=== PATIENT | male | born 1935 | race Caucasian/White ===

== ENCOUNTER 2017-01-03 13:09 | Inpatient (IN) | payer MEDICARE, BC ==
--- NOTE | 2017-01-03 13:58 | ED ---
General Adult HPI - General Chief complaint: Shortness of Breath Stated complaint: Leg Pain Time Seen by Provider: 01/03/17 13:49 Source: patient Mode of arrival: wheelchair Limitations: no limitations - History of Present Illness Initial comments: 81-year-old male presents with shortness breath for 2 months lives with a relative however the son came into town they have noticed he has at times had some hallucinations. And he seemed to be not doing as well. Has not seen a doctor in 6 years she's had previous bilateral carotid surgery. His had his stents in his left leg. He has no chest pain dizziness nausea vomiting diarrhea. No focal numbness or weakness - Related Data Home Medications Medication Instructions Recorded Confirmed No Known Home Medications [No 01/03/17 01/03/17 Known Home Medications] Allergies Allergy/AdvReac Type Severity Reaction Status Date / Time No Known Allergies Allergy Verified 01/03/17 13:58 Review of Systems ROS Statement: Those systems with pertinent positive or pertinent negative responses have been documented in the HPI. ROS Other: All systems not noted in ROS Statement are negative. Constitutional: Denies: fever, chills ENT: Denies: ear pain, throat pain Respiratory: Reports: dyspnea. Denies: cough Cardiovascular: Denies: chest pain Endocrine: Reports: fatigue Gastrointestinal: Denies: abdominal pain, nausea, vomiting, diarrhea Genitourinary: Denies: urgency, frequency Skin: Denies: rash Neurological: Denies: headache Psychiatric: Denies: anxiety, depression Hematological/Lymphatic: Denies: easy bleeding, easy bruising Past Medical History Past Medical History: No Reported History History of Any Multi-Drug Resistant Organisms: None Reported Additional Past Surgical History / Comment(s): carotids r testicular surg Past Psychological History: No Psychological Hx Reported Smoking Status: Never smoker Past Alcohol Use History: None Reported Past Drug Use History: None Reported - Past Family History Father Family Medical History: CVA/TIA Brother(s) Family Medical History: Chest Pain / Angina Additional Family Medical History / Comment(s): brothers x2 General Exam Limitations: no limitations General appearance: alert Head exam: Present: atraumatic Eye exam: Present: PERRL, EOMI ENT exam: Present: normal exam, mucous membranes moist Neck exam: Present: normal inspection Respiratory exam: Present: normal lung sounds bilaterally Cardiovascular Exam: Present: regular rate, normal heart sounds GI/Abdominal exam: Present: soft, normal bowel sounds Extremities exam: Present: pedal edema (4+) Neurological exam: Present: alert, CN II-XII intact Skin exam: Present: warm, dry Course Vital Signs 01/03/17 01/03/17 01/03/17 13:34 14:28 15:30 Temperature 97.6 F Pulse Rate 98 82 90 Respiratory 18 18 24 Rate Blood Pressure 169/83 165/90 154/87 O2 Sat by Pulse 99 100 100 Oximetry 01/03/17 01/03/17 01/03/17 16:30 17:30 18:49 Temperature Pulse Rate 82 90 92 Respiratory 22 22 22 Rate Blood Pressure 161/93 160/84 162/87 O2 Sat by Pulse 100 100 100 Oximetry Medical Decision Making - Medical Decision Making Discussed with the on-call physician admission, has congestive heart failure chronic renal failure CT of the brain reveals just chronic changes with old stroke. - Lab Data Result diagrams: 01/04/17 11:37 01/04/17 06:20 Lab Results 01/03/17 01/03/17 01/03/17 Range/Units 14:15 14:15 14:15 WBC 12.6 H (3.8-10.6) k/uL RBC 4.50 (4.30-5.90) m/uL Hgb 13.3 (13.0-17.5) gm/dL Hct 43.1 (39.0-53.0) % MCV 95.7 (80.0-100.0) fL MCH 29.5 (25.0-35.0) pg MCHC 30.8 L (31.0-37.0) g/dL RDW 14.6 (11.5-15.5) % Plt Count 235 (150-450) k/uL Neutrophils % 89 % Lymphocytes % 3 % Monocytes % 7 % Eosinophils % 0 % Basophils % 0 % Neutrophils # 11.2 H (1.3-7.7) k/uL Lymphocytes # 0.3 L (1.0-4.8) k/uL Monocytes # 0.8 (0-1.0) k/uL Eosinophils # 0.0 (0-0.7) k/uL Basophils # 0.0 (0-0.2) k/uL Hypochromasia Slight PT (9.0-12.0) sec INR (<1.1) APTT (22.0-30.0) sec D-Dimer (<0.60) mg/L FEU Sodium 136 L (137-145) mmol/L Potassium 4.8 (3.5-5.1) mmol/L Chloride 105 (98-107) mmol/L Carbon Dioxide 17 L (22-30) mmol/L Anion Gap 14 mmol/L BUN 84 H* (9-20) mg/dL Creatinine 2.82 H (0.66-1.25) mg/dL Est GFR (MDRD) Af Amer 26 (>60 ml/min/1.73 sqM) Est GFR (MDRD) Non-Af 22 (>60 ml/min/1.73 sqM) Glucose 100 H (74-99) mg/dL Calcium 8.9 (8.4-10.2) mg/dL Magnesium (1.6-2.3) mg/dL Total Bilirubin 1.5 H (0.2-1.3) mg/dL AST 22 (17-59) U/L ALT 35 (21-72) U/L Alkaline Phosphatase 169 H (38-126) U/L Total Creatine Kinase 38 L (55-170) U/L CK-MB (CK-2) 1.8 (0.0-2.4) ng/mL CK-MB (CK-2) Rel Index 4.7 Troponin I 0.054 H* (0.000-0.034) ng/mL NT-Pro-B Natriuret Pep pg/mL Total Protein 6.8 (6.3-8.2) g/dL Albumin 3.0 L (3.5-5.0) g/dL TSH (0.465-4.680) mIU/L Free T4 (0.78-2.19) ng/dL Free T3 pg/mL (2.8-5.3) pg/ml Urine Color Urine Appearance (Clear) Urine pH (5.0-8.0) Ur Specific [place] (1.001-1.035) Urine Protein (Negative) Urine Glucose (UA) (Negative) Urine Ketones (Negative) Urine Blood (Negative) Urine Nitrite (Negative) Urine Bilirubin (Negative) Urine Urobilinogen (<2.0) mg/dL Ur Leukocyte Esterase (Negative) Urine WBC (0-5) /hpf Urine Bacteria (None) /hpf Hyaline Casts (0-2) /lpf Urine Mucus (None) /hpf 01/03/17 01/03/17 01/03/17 Range/Units 14:15 14:15 14:20 WBC (3.8-10.6) k/uL RBC (4.30-5.90) m/uL Hgb (13.0-17.5) gm/dL Hct (39.0-53.0) % MCV (80.0-100.0) fL MCH (25.0-35.0) pg MCHC (31.0-37.0) g/dL RDW (11.5-15.5) % Plt Count (150-450) k/uL Neutrophils % % Lymphocytes % % Monocytes % % Eosinophils % % Basophils % % Neutrophils # (1.3-7.7) k/uL Lymphocytes # (1.0-4.8) k/uL Monocytes # (0-1.0) k/uL Eosinophils # (0-0.7) k/uL Basophils # (0-0.2) k/uL Hypochromasia PT 13.2 H (9.0-12.0) sec INR 1.3 (<1.1) APTT 29.9 (22.0-30.0) sec D-Dimer 3.78 H (<0.60) mg/L FEU Sodium (137-145) mmol/L Potassium (3.5-5.1) mmol/L Chloride (98-107) mmol/L Carbon Dioxide (22-30) mmol/L Anion Gap mmol/L BUN (9-20) mg/dL Creatinine (0.66-1.25) mg/dL Est GFR (MDRD) Af Amer (>60 ml/min/1.73 sqM) Est GFR (MDRD) Non-Af (>60 ml/min/1.73 sqM) Glucose (74-99) mg/dL Calcium (8.4-10.2) mg/dL Magnesium (1.6-2.3) mg/dL Total Bilirubin (0.2-1.3) mg/dL AST (17-59) U/L ALT (21-72) U/L Alkaline Phosphatase (38-126) U/L Total Creatine Kinase (55-170) U/L CK-MB (CK-2) (0.0-2.4) ng/mL CK-MB (CK-2) Rel Index Troponin I (0.000-0.034) ng/mL NT-Pro-B Natriuret Pep 87786 pg/mL Total Protein (6.3-8.2) g/dL Albumin (3.5-5.0) g/dL TSH (0.465-4.680) mIU/L Free T4 (0.78-2.19) ng/dL Free T3 pg/mL (2.8-5.3) pg/ml Urine Color Yellow Urine Appearance Clear (Clear) Urine pH 5.0 (5.0-8.0) Ur Specific [place] 1.012 (1.001-1.035) Urine Protein 1+ H (Negative) Urine Glucose (UA) Negative (Negative) Urine Ketones Negative (Negative) Urine Blood Negative (Negative) Urine Nitrite Negative (Negative) Urine Bilirubin Negative (Negative) Urine Urobilinogen <2.0 (<2.0) mg/dL Ur Leukocyte Esterase Negative (Negative) Urine WBC 1 (0-5) /hpf Urine Bacteria Rare H (None) /hpf Hyaline Casts 4 H (0-2) /lpf Urine Mucus Rare H (None) /hpf 01/03/17 Range/Units 14:27 WBC (3.8-10.6) k/uL RBC (4.30-5.90) m/uL Hgb (13.0-17.5) gm/dL Hct (39.0-53.0) % MCV (80.0-100.0) fL MCH (25.0-35.0) pg MCHC (31.0-37.0) g/dL RDW (11.5-15.5) % Plt Count (150-450) k/uL Neutrophils % % Lymphocytes % % Monocytes % % Eosinophils % % Basophils % % Neutrophils # (1.3-7.7) k/uL Lymphocytes # (1.0-4.8) k/uL Monocytes # (0-1.0) k/uL Eosinophils # (0-0.7) k/uL Basophils # (0-0.2) k/uL Hypochromasia PT (9.0-12.0) sec INR (<1.1) APTT (22.0-30.0) sec D-Dimer (<0.60) mg/L FEU Sodium (137-145) mmol/L Potassium (3.5-5.1) mmol/L Chloride (98-107) mmol/L Carbon Dioxide (22-30) mmol/L Anion Gap mmol/L BUN (9-20) mg/dL Creatinine (0.66-1.25) mg/dL Est GFR (MDRD) Af Amer (>60 ml/min/1.73 sqM) Est GFR (MDRD) Non-Af (>60 ml/min/1.73 sqM) Glucose (74-99) mg/dL Calcium (8.4-10.2) mg/dL Magnesium 2.3 (1.6-2.3) mg/dL Total Bilirubin (0.2-1.3) mg/dL AST (17-59) U/L ALT (21-72) U/L Alkaline Phosphatase (38-126) U/L Total Creatine Kinase (55-170) U/L CK-MB (CK-2) (0.0-2.4) ng/mL CK-MB (CK-2) Rel Index Troponin I (0.000-0.034) ng/mL NT-Pro-B Natriuret Pep pg/mL Total Protein (6.3-8.2) g/dL Albumin (3.5-5.0) g/dL TSH 2.370 (0.465-4.680) mIU/L Free T4 1.54 (0.78-2.19) ng/dL Free T3 pg/mL 2.0 L (2.8-5.3) pg/ml Urine Color Urine Appearance (Clear) Urine pH (5.0-8.0) Ur Specific [place] (1.001-1.035) Urine Protein (Negative) Urine Glucose (UA) (Negative) Urine Ketones (Negative) Urine Blood (Negative) Urine Nitrite (Negative) Urine Bilirubin (Negative) Urine Urobilinogen (<2.0) mg/dL Ur Leukocyte Esterase (Negative) Urine WBC (0-5) /hpf Urine Bacteria (None) /hpf Hyaline Casts (0-2) /lpf Urine Mucus (None) /hpf 01/03/17 14:11 EKG 01/03/2017 1406 ventricular rate 94 bpm, TN interval 214 ms, QRS duration are 14 ms, QT interval 382 ms sinus rhythm with first-degree AV block possible left atrial enlargement left anterior fascicular block and LVH with repolarization abnormality possible old lateral infarct incomplete right bundle branch block 01/03/17 14:12 - Radiology Data Radiology results: report reviewed Chest x-ray report no infiltrate of possible mild failure Disposition Clinical Impression: Congestive heart failure (CHF), Chronic renal failure syndrome Disposition: ADMITTED IP TO THIS HOSP Decision Date: 01/03/17
[2017-01-03 14:31] LABS: Basophils % (A) 0 %; CH 29.5; Eosinophils % (A) 0 %; HCT 43.1 % (39.0-53.0); HDW 2.49; HGB 13.3 gm/dL (13.0-17.5); Hypochromasia Slight; Luc # (Auto) 0.15; Luc % (Auto) 1; Lymphocytes # (A) 0.3 k/uL (1.0-4.8); Lymphocytes % (A) 3 %; MCH 29.5 pg (25.0-35.0); MCHC 30.8 g/dL (31.0-37.0); MCV 95.7 fL (80.0-100.0); Mean Platelet Volume 7.6; Monocytes # (A) 0.8 k/uL (0-1.0); Monocytes % (A) 7 %; Neutrophils # (A) 11.2 k/uL (1.3-7.7); Neutrophils % (A) 89 %; RDW 14.6 % (11.5-15.5); WBC 12.6 k/uL (3.8-10.6); WBC (Perox) 12.18
[2017-01-03 14:44] LABS: Calcium 8.9 mg/dL (8.4-10.2); Potassium 4.8 mmol/L (3.5-5.1); Total Bilirubin 1.5 mg/dL (0.2-1.3); Total Protein 6.8 g/dL (6.3-8.2)
[2017-01-03 14:44] LABS: Appearance,Urine Clear (Clear); Bacteria,Urine Rare /hpf; Bilirubin,Urine Negative (Negative); Glucose,Urine (UA) Negative (Negative); Ketones,Urine Negative (Negative); Leukocyte Esterase,Urine Negative (Negative); Mucus,Urine Rare /hpf; Nitrite,Urine Negative (Negative); Particle Count 6265; Protein,Urine 1+ (Negative); Specific Gravity,Urine 1.012 (1.001-1.035); UA Billing (MACRO vs. MICRO) MICRO; Urobilinogen,Urine <2.0 mg/dL (<2.0); WBC,Urine 1 /hpf (0-5)
[2017-01-03 14:48] LABS: INR 1.3 (<1.1); Partial Thromboplastin Time 29.9 sec (22.0-30.0); Prothrombin Time 13.2 sec (9.0-12.0)
[2017-01-03 15:20] LABS: Creatine Kinase MB 1.8 ng/mL (0.0-2.4)
--- NOTE | 2017-01-03 15:24 | XR ---
EXAMINATION TYPE: XR chest 2V DATE OF EXAM: 01/03/2017 3:10 PM COMPARISON: None HISTORY: 81-year-old male difficulty breathing TECHNIQUE: AP and lateral views FINDINGS: Heart appears mildly enlarged. Diffuse interstitial and vascular prominence with small right and trac e left pleural effusions with adjacent opacity. IMPRESSION: 1. Correlate for CHF with pulmonary vascular congestion. 2. Small right and trace left pleural effusions with adjacent atelectasis and/or consolidation partic ularly at the right base.
[2017-01-03 15:34] LABS: Troponin I 0.054 ng/mL (0.000-0.034)
[2017-01-03] MEDS ORDERED: FUROSEMIDE 10 MG/ML 10 ML VIAL IV STA (15:42)
--- NOTE | 2017-01-03 17:05 | US ---
EXAMINATION TYPE: US venous doppler duplex LE BI DATE OF EXAM: 01/03/2017 3:58 PM COMPARISON: NONE CLINICAL HISTORY: 81-year-old male Pain. Bilateral leg swelling SIDE PERFORMED: Bilateral TECHNIQUE: The lower extremity deep venous system is examined utilizing real time linear array sonog jorge with graded compression, doppler sonography and color-flow sonography. FINDINGS: VESSELS IMAGED: External Iliac Vein (EIV) Common Femoral Vein Deep Femoral Vein Greater Saphenous Vein * Femoral Vein Popliteal Vein Proximal Calf Veins (* superficial vessels) Right Leg: Negative for DVT Left Leg: Negative for DVT IMPRESSION: No evidence for DVT within the bilateral lower extremities imaged from the groin to the upper calves.
--- NOTE | 2017-01-03 18:09 | CT ---
EXAMINATION TYPE: CT brain wo con DATE OF EXAM: 01/03/2017 5:46 PM COMPARISON: NONE HISTORY: 81-year-old male with confusion and weakness TECHNIQUE: Examination was done in axial plane without intravenous contrast. Coronal and sagittal r econstructions performed. CT DLP: 1084.3 mGycm Automated exposure control for dose reduction was used. FINDINGS: There is no evidence of acute intracranial hemorrhage, acute ischemic changes, mass, mass-effect, or extra-axial fluid collection. There is no effacement of cerebral sulci or basal subarachnoid cister ns. There is no hydrocephalus. There is no midline shift. Waddell-white matter distinction is preserv ed. There is moderate to severe confluent white matter hypodensity. Mild central cerebral volume loss. Sm all old infarct within the left cerebellar hemisphere posteriorly and inferiorly. Paranasal sinuses and mastoid air cells are well pneumatized. Orbits and globes are intact. IMPRESSION: 1. No acute intracranial abnormality seen. 2. Mild central atrophy and moderate to severe confluent burden of chronic small vessel ischemic dise ase. Suspect small old left cerebellar hemisphere infarct.
[2017-01-03] MEDS ORDERED: NALOXONE 0.4 MG/ML 1 ML VIAL IV PRN (18:20)
--- NOTE | 2017-01-03 19:56 | US ---
EXAMINATION TYPE: US kidneys/renal and bladder DATE OF EXAM: 01/03/2017 7:36 PM COMPARISON: NONE CLINICAL HISTORY: 81-year-old male with pain. TECHNIQUE: Multiple sonographic images of the kidneys and bladder were obtained. FINDINGS: Right Kidney: 9.7 x 3.5 x 4.1 cm without hydronephrosis. Left Kidney: 9.1 x 4.4 x 4.7 cm without hydronephrosis. Bladder: There is a rounded area along the anterior bladder wall measuring 1.6 x 2.1 x 1.2 cm. Uncert ain if this represents bladder wall redundancy or urothelial lesion. There is prostatomegaly with heterogeneous appearance to the prostate gland measuring 5.5 cm wide and at least 6.4 cm craniocaudal with posterior impression on to the bladder base Right pleural effusion incidentally noted. IMPRESSION: 1. No hydronephrosis. 2. Prostatomegaly measuring at least 6.4 cm with posterior impression on the bladder base. Correlate with PSA values, patient's symptoms, and physical exam findings. BPH is suggested. 3. Either anterior bladder wall redundancy or a 2.1 cm urothelial lesion. Correlate with urinalysis a nd urine cytology. Short interval follow-up versus direct visualization as indicated. 4. Incidental right pleural effusion.
[2017-01-03] MEDS ORDERED: ENOXAPARIN 60 MG/0.6 ML SYRINGE SQ SCH (20:00)
[2017-01-03 22:02] LABS: Magnesium 2.3 mg/dL (1.6-2.3)
[2017-01-04 06:58] LABS: Calcium 8.5 mg/dL (8.4-10.2); Potassium 4.4 mmol/L (3.5-5.1)
[2017-01-04 07:03] LABS: Basophils % (A) 0 %; CH 29.1; CHCM 30.6; Eosinophils % (A) 0 %; HCT 38.3 % (39.0-53.0); HDW 2.54; HGB 11.7 gm/dL (13.0-17.5); Hypochromasia Moderate; Luc # (Auto) 0.18; Luc % (Auto) 2; Lymphocytes # (A) 0.3 k/uL (1.0-4.8); Lymphocytes % (A) 3 %; MCH 29.3 pg (25.0-35.0); MCHC 30.7 g/dL (31.0-37.0); MCV 95.4 fL (80.0-100.0); Mean Platelet Volume 7.8; Monocytes # (A) 0.7 k/uL (0-1.0); Monocytes % (A) 7 %; Neutrophils # (A) 8.2 k/uL (1.3-7.7); Neutrophils % (A) 88 %; RBC 4.01 m/uL (4.30-5.90); RDW 14.3 % (11.5-15.5); WBC 9.4 k/uL (3.8-10.6); WBC (Perox) 9.51
[2017-01-04] MEDS: FUROSEMIDE 10 MG/ML 10 ML VIAL IV SCH ×3 (07:49→21:04)
[2017-01-04] MEDS ORDERED: FAMOTIDINE 20 MG TAB PO SCH (09:00)
[2017-01-04] MEDS ORDERED: HEPARIN SODIUM,PORCINE 10,000 UNIT/ML 1 ML VIAL IV ONE (11:01)
[2017-01-04 11:04] LABS: Magnesium 2.1 mg/dL (1.6-2.3); Phosphorous 4.8 mg/dL (2.5-4.5)
--- NOTE | 2017-01-04 11:40 | P.NPCON ---
History of Present Illness - Reason for Consult Consult date: 01/04/17 acute renal failure - Chief Complaint Acute kidney injury. - History of Present Illness This is a 81-year-old male seen in consultation because of an elevated creatinine. Creatinine is 2.8. He came in because of 4-5 months feeling unwell with history of loss of taste, some difficulty swallowing with dry mouth. Also has been having nocturia for about 5 years as well as slow stream over the last few months. No hematuria kidney stones. No incontinence. He is also has had periods of hallucinations. No nausea vomiting he does have loose stools for the last 2 weeks about 3-4 small amounts per day. No abdominal pain no blood in the stools. No melena hemoptysis hematemesis. No abdominal pain and epigastric pain. No history of duodenal ulcer. No history of taking any nonsteroidals. He has not seen any doctors for several years. In the past she's had hypertension at age [age] years ago but was not controlled and had stopped taking all medications supposedly. He has had her for vascular disease and had a stent in his left leg by Dr. Churchill at [facility] few years ago. Also had bilateral endarterectomies No history of heart attack or strokes. Patient is walking with S cane and has poor ambulation. No history of falls's seizures syncope headache or double vision. Past Medical History Past Medical History: No Reported History, Heart Failure, Hypertension, Renal Disease Additional Past Medical History / Comment(s): pt admit with New onset CHF and New onset Renal failure 01/03 History of Any Multi-Drug Resistant Organisms: None Reported Additional Past Surgical History / Comment(s): Bilat carotids, r testicular surg , Sent to the [facility]-pt unsure which leg Past Anesthesia/Blood Transfusion Reactions: No Reported Reaction Past Psychological History: Anxiety, Depression Smoking Status: Former smoker Past Alcohol Use History: None Reported Additional Past Alcohol Use History / Comment(s): has a few drinks a day Past Drug Use History: None Reported - Past Family History Father Family Medical History: CVA/TIA Brother(s) Family Medical History: Chest Pain / Angina Additional Family Medical History / Comment(s): brothers x2 Medications and Allergies Home Medications Medication Instructions Recorded Confirmed Type No Known Home Medications [No 01/03/17 01/03/17 History Known Home Medications] Allergies Allergy/AdvReac Type Severity Reaction Status Date / Time No Known Allergies Allergy Verified 01/03/17 13:58 Physical Exam Vitals: Vital Signs Temp Pulse Pulse Resp BP BP Pulse Ox 01/04/17 08:00 90 18 152/82 93 L 01/04/17 04:00 86 19 147/82 92 L 01/04/17 00:00 55 L 18 143/76 96 01/03/17 20:57 97.0 F L 82 18 169/93 01/03/17 18:49 92 22 162/87 100 Intake and Output 01/03/17 01/04/17 01/04/17 22:59 06:59 14:59 Intake Total 0 120 Output Total 250 Balance 0 -130 Intake: IV 0 NS 0 Oral 120 Output: Urine 250 Other: Weight 68.2 kg On examination is awake alert oriented. HEENT exam no JVP lymphadenopathy thyromegaly no card bruit bilaterally carotid artery endarterectomy starts. Neck is supple no facial asymmetry Lungs are clear to auscultation percussion with an occasional fine crackle at both bases more on the right than on the left. No dullness to percussion Heart sounds are unremarkable for any murmur rub gallop. Abdomen soft nontender no organomegaly status masses. Extremity exam was mild edema Assessment is not felt but feet are warm. Neurologically awake alert oriented no asterixis. No focal motor deficit but profoundly weak. Results - Lab Results Most recent lab results Calcium 8.5 mg/dL (8.4-10.2) 01/04/17 06:20 Phosphorus 4.8 mg/dL (2.5-4.5) H 01/04/17 06:20 Magnesium 2.1 mg/dL (1.6-2.3) 01/04/17 06:20 01/04/17 06:20 01/04/17 06:20 Assessment and Plan Plan: Impression. 1. 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 Creatinine is 2.8, and went up to 2.9 as of this morning. No previous creatinines available in this hospital will try to obtain from the other hospital results of his previous surgery and labs. Urinalysis shows 1+ protein otherwise benign, ultrasound shows 9.7 cm 9.1 cm kidney 2. Possible acute kidney injury from prostatism and congestive heart failure. 3. Congestive heart failure. Possibly he has had coronary artery disease given the above generalized atherosclerosis. He is likely to have chronic hypertensive changes from long-standing uncontrolled hypertension of 20 years as he had stopped his medication. 4. Non-gap acidosis from kidney disease and chronic kidney disease and acute kidney injury 5. Prostatomegaly on ultrasound. 6. History of loose stools for 2 weeks rule out C. diff possible ischemic bowel but no abdominal pain. 7. History of hypertension uncontrolled for 21 years not on medication but currently blood pressure is in the 140s to 150s suggestive of hypertensive cardiovascular disease and possibly cardiomyopathy. Recommendation. Check bladder scan. Continue Lasix, current 60 mg every 12 IV dose is adequate. Watch I's and O's closely. Check orthostatic changes. Suggest neurological assessment of his prostate. Thank you for this consultation
[2017-01-04] MEDS: HEPARIN SODIUM,PORCINE/D5W PMX 25,000 UNIT in DEXTROSE/WATER 1 500ML.BAG IV SCH (11:43)
[2017-01-04] MEDS: METOPROLOL TARTRATE 12.5 MG TAB PO SCH (11:49)
[2017-01-04 11:58] LABS: Basophils % (A) 0 %; CH 29.3; Eosinophils % (A) 0 %; HCT 39.6 % (39.0-53.0); HDW 2.59; HGB 12.5 gm/dL (13.0-17.5); Hypochromasia Slight; Luc # (Auto) 0.18; Luc % (Auto) 2; Lymphocytes # (A) 0.4 k/uL (1.0-4.8); Lymphocytes % (A) 4 %; MCHC 31.5 g/dL (31.0-37.0); MCV 95.1 fL (80.0-100.0); Mean Platelet Volume 8.1; Monocytes # (A) 0.7 k/uL (0-1.0); Monocytes % (A) 6 %; Neutrophils # (A) 9.4 k/uL (1.3-7.7); Neutrophils % (A) 88 %; RBC 4.17 m/uL (4.30-5.90); RDW 14.6 % (11.5-15.5); WBC 10.7 k/uL (3.8-10.6); WBC (Perox) 10.14
[2017-01-04 12:07] LABS: INR 1.4 (<1.1); Partial Thromboplastin Time 33.1 sec (22.0-30.0); Prothrombin Time 13.7 sec (9.0-12.0)
--- NOTE | 2017-01-04 15:11 | US ---
EXAMINATION TYPE: US carotid duplex BILAT DATE OF EXAM: 01/04/2017 2:56 PM COMPARISON: NONE CLINICAL HISTORY: Past Carotid . Dizziness, pt states h/o bilat endart 15-20 yrs ago EXAM MEASUREMENTS: RIGHT: Peak Systolic Velocity (PSV) cm/sec ----- Right CCA: 63.3 ----- Right ICA: 222.7 ----- Right ECA: 229.2 ICA/CCA ratio: 3.5 RIGHT: End Diastole cm/sec ----- Right CCA: 20.6 ----- Right ICA: 64.3 ----- Right ECA: 15.8 LEFT: Peak Systolic Velocity (PSV) cm/sec ----- Left CCA: 71.3 ----- Left ICA: 98.2 ----- Left ECA: 200.4 ICA/CCA ratio: 1.4 LEFT: End Diastole cm/sec ----- Left CCA: 18.6 ----- Left ICA: 32.2 ----- Left ECA: 0.0 VERTEBRALS (direction of flow): Right Vertebral: Unable to visualize Left Vertebral: Antegrade Difficult exam, pt heavy breathing* Heterogeneous and soft plaque bilaterally with elevated velocities, more on Right IMPRESSION: 1. 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 Correlate with the patient's clinical symptoms. Criteria for Assigning % of Stenosis / Diameter reduction (Estimation based on the indirect measurements of the internal carotid artery velocities (ICA PSV). 1. Normal (no stenosis)=ICA PSV < 125 cm/s: ratio < 2.0: ICA EDV<40 cm/s. 2. Less than 50% stenosis=ICA PSV < 125 cm/s: ratio < 2.0: ICA EDV<40 cm/s. 3. 50 to 69% stenosis=ICA PSV of 125 to 230 cm/s: ration 2.0 ? 4.0: ICA EDV 40-100 cm/s. 4. Greater than 70% stenosis to near occlusion= ICA PSV > 230 cm/s: ratio > 4.0: ICA EDV > 100 cm/s. 5. Near occlusion= ICA PSV velocities may be low or undetectable: variable ratio and ICA EDV. 6. Total occlusion=unable to detect flow.
--- NOTE | 2017-01-04 16:08 | NM ---
EXAMINATION TYPE: NM pul vent and perfuse DATE OF EXAM: 01/04/2017 3:49 PM COMPARISON: Chest x-ray 01/03/2017 HISTORY: Elevated d-dimer TECHNIQUE: Utilizing inhalation of 71.5 mCi Tc 99m DTPA aerosol and intravenous injection of 5.5 mCi of Tc 99m MAA, ventilation and perfusion images are acquired post injection in multiple projections. FINDINGS: There is some mild defect at the posterior right lung base. This could correlate with the right pleur al effusion. This places the risk for pulmonary embolism at the lower end of intermediate. Moderate t o large mismatched defects are not evident. IMPRESSION: Low end of intermediate probability for pulmonary embolism.
[2017-01-04] MEDS: IOHEXOL 350 MG/ML 25 ML BOTTLE (ORAL USE) PO PRN ×2 (16:15→17:16)
--- NOTE | 2017-01-04 16:55 | CONS ---
DATE OF CONSULTATION: This is an 81-year-old elderly gentleman who has not seen a physician for the past 6 years. Apparently he has a history of peripheral and carotid vascular disease and has seen in Dr. Churchill in the past who performed carotid endarterectomy bilaterally and also has a left superficial femoral stent. Details of this is not available. He presented to the emergency room, brought in by family. Mainly because of shortness of breath, weakness, lack of energy, hallucinations. He did not have any chest pain. He was weak and had some shortness of breath, but no palpitations or syncope. After arrival, he was found to have significant renal failure. He has been hydrated. Nephrology input was sought. Initial troponin was abnormal and I was asked to see him with regards to coronary artery disease and elevated troponin. The patient is not a good historian. There is a lot of family available and apparently has not been taking care of himself. He lives with some relatives. They noted that he was hallucinating. Generalized weakness, lack of energy. At the time of my evaluation, he seems to be resting comfortably. PAST MEDICAL HISTORY: 1. History of bilateral carotid endarterectomy left superficial femoral stenting. 2. Hypertension. 3. Hyperlipidemia. 4. No documented evidence of myocardial infarction or CVA. SOCIAL HISTORY: The patient quit smoking several years ago, drinks alcohol 1 or 2 beers daily. MEDICATIONS AT HOME: None. ALLERGIES: None. REVIEW OF SYSTEMS: Remarkable for generalized weakness, lack of energy, no hematemesis or melena, no genitourinary symptoms. He does have some memory issues. Has some lack of appetite as well. He has lost some weight lately unable to quantify. On examination, blood pressure is 140/80, pulse rate is 80 per minute, regular. HEENT: Unremarkable. Fundus was not examined by me. Neck is supple. There is no JVD. I do hear bilateral carotid bruit. Heart exam reveals S1, S2 with a short systolic murmur at the base. Lungs reveal diminished air entry in bilateral lung peck. ABDOMEN: Soft. Lower extremities reveal diminished pulses left lower extremity. Palpable pulses right lower extremity. Central nervous system grossly normal, but no focal deficits or generalized weakness. EKG revealed sinus mechanism, left fascicular block, nonspecific ST-T changes, LVH by voltage criteria. Laboratory data reveals a creatinine of 2.9 and a BUN of 83. His troponin level initially was 0.05. BNP is elevated at 65,000. TSH is normal. D-dimer was elevated at 3.78. He has been placed on Lovenox. IMPRESSION: 1. Shortness of breath, cannot rule out pulmonary embolism. 2. Acute on chronic renal failure with volume overload picture elevated BNP. 3. Probable coronary artery disease. 4. Bilateral carotid disease, status post surgery. 5. Superficial peripheral arterial disease with left superficial femoral artery stenting. RECOMMENDATIONS: I am recommending that we discontinue Lovenox, since with renal failure it is not very effective. Switch him to IV heparin. I will recommend a VQ scan to rule out pulmonary embolism. Start him on a small dose of beta melinda, obtain an echocardiogram and a carotid Doppler. We will seek input from nephrology and based on this, I will make further recommendations. Prognosis is guarded for this patient. We will check an additional troponin, but I believe the elevated troponin may reflect a renal dysfunction values, but no clear-cut myocardial injury but will check an additional troponin as well. I discussed my thoughts in detail with the patient and family. Prognosis remains poor given his multiple comorbid conditions and lack of care on his part.
--- NOTE | 2017-01-04 17:23 | HP ---
DATE OF ADMISSION: 01/03/2017 CHIEF COMPLAINT: Shortness of breath, back pain and multiple other medical issues. HISTORY OF PRESENT ILLNESS: This 81-year-old gentleman with a past medical history of multiple medical problems including hypertension, history of congestive heart failure, history of renal disease, history of bilateral carotid artery surgery, history of peripheral vascular disease , anxiety, depression, was not seeing any physician for the last almost 6 years. The patient became progressively weak and wasted and the patient also had shortness of breath and cough and back pain. The family insisted the patient come to [facility]. The patient noted to have CHF exacerbation, admitted to the hospital for further evaluation and treatment. There is no history of fever, rigors or chills. No history of headache, loss of consciousness or seizures. PAST MEDICAL HISTORY: History of CHF, hypertension, history of noncompliance, renal failure, anxiety, and depression. MEDICATIONS: None. ALLERGIES: None. FAMILY HISTORY: History of cerebrovascular accident/ transient ischemic attack in the family. SOCIAL HISTORY: Occasional alcohol intake. Previous history of smoking. REVIEW OF SYSTEMS: ENT: Diminishing hearing, diminished vision. CARDIOVASCULAR: As mentioned earlier. RESPIRATORY: As mentioned earlier. GI: No nausea. : No dysuria. Nervous system: No numbness or weakness. Allergy/immunology: No asthma or hayfever. MUSCULOSKELETAL: As mentioned earlier. HEMATOLOGY/ONCOLOGY: No history of anemia. ENDOCRINE: As mentioned earlier. CONSTITUTIONAL: As mentioned earlier. DERMATOLOGY: Negative. RHEUMATOLOGY: negative. PSYCHIATRY: As mentioned earlier. PHYSICAL EXAMINATION: Alert and oriented times three. Pulse is 86, blood pressure 165/89, respirations 18, temperature 96.3, pulse ox 97% on room air. HEENT: Conjunctivae normal. NECK: No jugular venous distention. CARDIOVASCULAR: S1, S2 muffled. Ejection systolic murmur. RESPIRATORY: Breath sounds diminished at the bases. A few scattered rhonchi and crackles. Some tenderness in the upper thoracic vertebrae present. ABDOMEN: Soft, nontender. No mass palpable. Legs: Minimal edema. Bilateral pulses, diminished and some erythema also present. Nervous system: Higher function as mentioned. Moves all 4 limbs. Mild diffuse weakness. Wasting also present. LYMPHATICS: No lymph nodes palpable in the neck, axillae or groin. SKIN: No ulcer, rash or bleeding. LABS: WBC 10.7, hemoglobin 12.5, sodium 130, potassium 4.4. Creatinine is 2.90. Troponin 0.064. The chest x-rays are reviewed and shows left anterior hemiblock and nonprogression R wave and ST-T changes. ASSESSMENT: 1. Congestive heart failure exacerbation ejection fraction unknown. 2. Possibly chronic renal failure, stage III. 3. Rule out acute renal failure. 4. History of hypertension. 5. History of congestive heart failure. 6. History of bilateral ( ) surgery. 7. History of peripheral vascular disease and stent. 8. Anxiety/depression not otherwise specified. 9. History of nicotine dependence. 10. History of recent weight loss. 11. Hyponatremia. 12. Increased bilirubin. 13. Increased creatinine kinase. 14. Troponin 0.06, indeterminate. 15. Mild hypoalbuminemia with mild to moderate protein calorie malnutrition. 16. Increased WBC. 17. Anemia, normocytic. 18. Mild coagulopathy. 19. Increased d-dimer. 20. Prostatomegaly. RECOMMENDATIONS AND DISCUSSION: In this 81 -year-old gentleman who presented with multiple complex medical issues, we will monitor the patient closely. Continue the current medications. Continue symptomatic treatment. Otherwise, continue with cardiology, diuresis, nephrology will also be consulted. Chest x-ray has been reviewed. Venous Doppler no evidence of deep venous thrombosis. CAT scan of the brain showed no acute abnormality. Mild central atrophy. Otherwise, I would also recommend a CT scan of the chest and abdomen and pelvis also because the patient's noncompliance with any medical treatment for the last several years and the patient has multiple complex medical issues including recent weight loss. Again discussed with the family at length. I would also obtain hepatitis panel also, possibly of chronic liver disease a consideration as well. Further recommendations to follow. MTDD
--- NOTE | 2017-01-04 17:34 | P.CON ---
Consult Note - . Consult date: 01/04/17 Assessment/Plan:: impression; 1. infrainguinal arterial occlusive disease (PAD) that is relatively asymptomatic, s/p left leg stent placement 2. worsening dyspnea with clincial evidence of CHF 3. Stage IV CKD 4. CAD; s/p bilateral carotid endarterectomy plan; 1. no acute surgical intervention at this time 2. segmental pressures/ROBINSON for assessment of PAD 81 y/o man, known to Dr. Churchill's service, underwent left leg stenting procedure for claudication in 2001. Walking improved after stent placement. Also underwent bilateral carotid endarterectomy. Has had no focal ischemic events in recent past. Admitted for dyspnea, disorientation, and failure to thrive. Lost 30lb in last 3 months secondary to anorexia. Denies rest pain or non-healing ulcers. CMHX; HTN, HLD, CAD, CHF, renal failure, nicotine dependence in remission PSHX; bilateral carotid endarterectomy, left leg stenting procedure Habits; 50 pack year history of smoking; quit 12 years ago, no EtOH or drugs FHx; CVA, CAD Medications, Allergies reviewed PE: WD thin male in NAD, appears chronically ill BP = 164/89, 86, 18 HEENT: normocephalic, anicteric sclera, dry oral mucosa, no carotid bruits or JVD, well-healed bilateral carotid endarterectomy incisions, no lymphadenopathy or thyromegaly Lungs; diminished at both bases, otherwise clear Heart; normal rate and rhythm, occasional extrasystole ABD; soft, non-tender, scaphoid, no pulsatile organomegaly EXTR; femoral pulses are palpable bilaterally; popliteal and pedal pulses are not; both feet are viable with capillary refill of 3 seconds, no evidence of acute ischemic changes; there is pedal edema bilaterally from the knees to the feet that is 1-2+ Carotid duplex from 01/04/2017 demonstrates 50-69% right carotid artery stenosis and the proximal right internal carotid artery; there is <50% left carotid stenosis and antegrade flow in the left vertebral, right vertebral flow was not visualized. impression/plan as noted above
[2017-01-04] MEDS: SODIUM BICARBONATE TAB 650 MG TAB PO SCH ×3 (18:11→21:04)
--- NOTE | 2017-01-04 20:09 | CT ---
EXAMINATION TYPE: CT ChestAbdPelvis wo con DATE OF EXAM: 01/04/2017 6:18 PM INDICATION: Upper back pain, weight loss and bowel changes COMPARISON: NONE CT DLP: 499.8 mGycm CONTRAST: Performed with Oral Contrast TECHNIQUE: Axial images at 5 mm thick sections. Reconstructed images in the coronal plane. Delayed images through the kidneys. FINDINGS: CT CHEST: Portion of the thyroid visualized is normal. There is a moderate right pleural effusion. There is a 3.1 x 4.4 cm density at the posterior left shae g base. Multiple areas of increased density are within the right infrahilar region. A more discrete n odule measuring 0.5 cm is in the right midlung. Series 4 image 22. The right lower lobe areas of incr eased density more ill-defined and could be infiltrate or underlying mass. Correlate for pneumonia. F ollow-up is recommended. No enlarged mediastinal or hilar adenopathy is evident. Multiple scattered small shotty lymph nodes a re present. Heart size is prominent. The ascending aorta diameter at the level of the main pulmonary artery is 3.9 cm. The main pulmonary artery diameter at the bifurcation is 3.[address] ABDOMEN: Liver: Normal. Some minimal fluid is adjacent to the posterior right tip of the liver. Spleen: Normal Pancreas: Normal Adrenal glands: The adrenal glands are normal. Gallbladder: Normal Kidneys: No masses are evident. No hydronephrosis is present. No cysts are present. Some minimal v ascular calcification may be present within the left renal system. Aorta: Vascular calcification is within the aorta. There is a stent within the left common iliac ves rory. Vascular calcifications within the iliac vessels and common femoral arteries. Inferior vena cava: Normal. CT PELVIS: Loops of bowel within the abdomen and pelvis are normal. No suspicious changes are evident. There are some loops of bowel lacking oral contrast limiting their evaluation. Appendix: Not identified Urinary bladder: Normal. Genitourinary structures: Prostate is very prominent. Osseous structures: No suspicious lytic or sclerotic lesions. Facet changes are within the lumbar spi ne. Some degenerative disc changes are present. Scoliosis to mild degree is present. IMPRESSIONS: 1. Moderate right pleural effusion. 2. Consolidations and/or masses at the bilateral lung bases discussed above. 3. Cardiomegaly.
[2017-01-04] MEDS: PANTOPRAZOLE 40 MG/10 ML VIAL IVP SCH (21:04)
[2017-01-04] MEDS: HYDROcodone/APAP 5-325MG 1 EACH TAB PO PRN (21:04)
[2017-01-05 06:49] LABS: Basophils % (A) 0 %; CH 28.8; CHCM 30.5; Eosinophils % (A) 1 %; HCT 38.5 % (39.0-53.0); HDW 2.61; HGB 12.1 gm/dL (13.0-17.5); Hypochromasia Moderate; Luc # (Auto) 0.13; Luc % (Auto) 2; Lymphocytes # (A) 0.4 k/uL (1.0-4.8); Lymphocytes % (A) 6 %; MCH 29.6 pg (25.0-35.0); MCHC 31.3 g/dL (31.0-37.0); MCV 94.6 fL (80.0-100.0); Mean Platelet Volume 7.6; Monocytes # (A) 0.5 k/uL (0-1.0); Monocytes % (A) 7 %; Neutrophils # (A) 5.9 k/uL (1.3-7.7); Neutrophils % (A) 85 %; RBC 4.07 m/uL (4.30-5.90); RDW 14.4 % (11.5-15.5); WBC 6.9 k/uL (3.8-10.6); WBC (Perox) 7.73
[2017-01-05] MEDS: HEPARIN SODIUM,PORCINE/D5W PMX 25,000 UNIT in DEXTROSE/WATER 1 500ML.BAG IV SCH (07:07)
[2017-01-05] MEDS: HEPARIN SODIUM,PORCINE 5,000 UNIT/ML 1 ML VIAL IV PRN ×2 (07:08→09:23)
[2017-01-05 07:21] LABS: Calcium 8.4 mg/dL (8.4-10.2); Potassium 4.1 mmol/L (3.5-5.1)
[2017-01-05] MEDS: METOPROLOL TARTRATE 12.5 MG TAB PO SCH (09:09)
[2017-01-05] MEDS: PANTOPRAZOLE 40 MG/10 ML VIAL IVP SCH (09:09)
[2017-01-05] MEDS: SODIUM BICARBONATE TAB 650 MG TAB PO SCH ×4 (09:09→22:32)
[2017-01-05] MEDS: FUROSEMIDE 10 MG/ML 10 ML VIAL IV SCH (09:10)
--- NOTE | 2017-01-05 09:11 | XR ---
EXAMINATION TYPE: XR chest 1V portable DATE OF EXAM: 01/05/2017 7:21 AM COMPARISON: 01/03/2017 INDICATION: CHF TECHNIQUE: Single frontal view of the chest is obtained. FINDINGS: The heart size is prominent. The pulmonary vasculature is normal. Right lower lobe infiltrate is present may be worsening. Small right pleural effusion is present. A m inimal left pleural effusion may have developed with silhouetting left diaphragm. Left basilar atelec tasis could also be considered. IMPRESSION: 1. Worsening bibasilar infiltrates and small pleural effusions. 2. Cardiomegaly
[2017-01-05 09:46] VITALS: BMI 21.9
--- NOTE | 2017-01-05 10:30 | ECHOF ---
Referral Reason:CHF MEASUREMENTS -------- HEIGHT: 175.3 cm WEIGHT: 67.1 kg BP: 157/90 RVIDd: 2.7 cm (< 3.3) IVSd: 0.9 cm (0.6 - 1.1) LVIDd: 5.3 cm (3.9 - 5.3) LVPWd: 1.9 cm (0.6 - 1.1) IVSs: 1.2 cm LVIDs: 4.6 cm LVPWs: 1.2 cm Ao Diam: 3.4 cm (2.0 - 3.7) AV Cusp: 1.8 cm (1.5 - 2.6) LA Diam: 5.3 cm (2.7 - 3.8) MV EXCURSION: 17.701 mm (> 18.000) MV EF SLOPE: 63 mm/s (70 - 150) EPSS: 1.5 cm MV E Abhishek: 0.88 m/s MV DecT: 149 ms MV A Abhishek: 0.55 m/s MV E/A Ratio: 1.61 RAP: 5.00 mmHg RVSP: 28.98 mmHg FINDINGS -------- Sinus rhythm. This was a technically adequate study. Left ventricular wall thickness is normal. There is severe global hypokinesis of LV . Overall left ventricular systolic function is severely impaired with, an EF between 20 - 25 %. Mitral Doppler inflow pattern suggests diastolic filling abnormality 22.69. The right ventricle is normal in size. The right atrial size is normal. There is mild to moderate aortic valve sclerosis. There is no evidence of aortic regurgitation. Mild mitral annular calcification present. [id number] mitral regurgitation is present. Mild tricuspid regurgitation present. There is no evidence of pulmonary hypertension. The right ventricular systolic pressure, as measured by Doppler, is 28.98mmHg. Trace/mild (physiologic) pulmonic regurgitation. The aortic root size is normal. There is no pericardial effusion. CONCLUSIONS -------- 1. Left ventricular wall thickness is normal. 2. The right ventricular systolic pressure, as measured by Doppler, is 28.98mmHg. 3. Trace/mild (physiologic) pulmonic regurgitation. 4. There is severe global hypokinesis of LV . 5. Overall left ventricular systolic function is severely impaired with, an EF between 20 - 25 %. 6. Mitral Doppler inflow pattern suggest diastolic filling abnormality 22.69. 7. There is mild to moderate aortic valve sclerosis. 8. Mild mitral annular calcification present. 9. [id number] mitral regurgitation is present. 10. Mild tricuspid regurgitation present. 11. There is no evidence of pulmonary hypertension. RELIEF SALESPERSON: Jennifer Lester RDCS
--- NOTE | 2017-01-05 13:53 | PN ---
Patient is seen for followup for acute kidney injury. He was admitted with a creatinine of about 2.8. It is now at 2.9. Patient is volume overloaded and currently maintained on Lasix. He had significant swelling of the lower extremities at the time of admission and he states he is feeling better and his swelling has improved. We do not have previous labs available for comparison. However, patient stated that he has not seen any physicians for about 5 years now. On examination today, patient is comfortable. Blood pressure is 156/91, heart rate 87 per minute. He is afebrile. Examination of the heart, S1 and S2. Examination of the lungs, bilateral breath sounds are heard. Decreased breath sounds in bases. Abdomen is soft, nontender. Examination of the lower extremities shows edema 1+ bilaterally. Chronic skin changes are noted. DISTRESSER exam is grossly intact. Labs show sodium 140, potassium 4.1, BUN of 85, serum creatinine 2.97. Hemoglobin 12.1 g/dL. UA shows 1+ protein. The CT of the abdomen shows no major abnormalities in the renal system. ASSESSMENT: 1. Renal failure, possibly acute on chronic; however, serum creatinine has not changed much since admission. GFR remains at about 20 to 21mL/min. Patient is maintained on IV Lasix 60 mg q.12 hours. I will decrease that to 40 mg q.12 hours for now. 2. Urine retention, currently with an indwelling Garrison catheter. 3. Rule out chronic kidney disease. No previous labs available for comparison. Patient has 1+ protein on his UA. We will need to quantify the proteinuria on repeat sample once his acute kidney injury improves. 4. Non- gap metabolic acidosis, maintained on oral sodium bicarb. PLAN: Continue indwelling Garrison catheter. Decrease Lasix to 40 mg IV q.12 hours, repeat labs in a.m. Thank you for this consultation. Will continue to follow the patient with you during his hospitalization. The patient is also encouraged to see follow up with Urology upon discharge.
--- NOTE | 2017-01-05 15:44 | P.PN ---
Subjective Date of service 01/05/2017. Progress note being dictated for Dr. Bocanegra. Interval history: This is an 81-year-old admitted with acute exacerbation CHF, systolic dysfunction, acute on possibly chronic renal failure, urinary retention in a patient with recent weight loss, noncompliance with medical treatment over several years and multiple other medical issues. Diuresing well on IV push Lasix with 24-hour I&O reflecting a negative fluid balance. Edema improving. Maintained on oral sodium bicarb. Carotid Doppler reporting moderate to severe stenosis within the right internal carotid artery of 50-69%. Evaluated by vascular surgery with recommendations noted: Nonsurgical. CT of the chest abdomen and pelvis noted including reporting of moderate right pleural effusion, consolidations and/or masses at the bilateral lung peck, cardiomegaly. There is a 3.1 x 4.4 density at the posterior left lung base, discrete nodule 0.5 cm right mid lung. Chest x-ray reporting worsening bibasilar infiltrates, small pleural effusion, cardiomegaly. Echo reporting severe global hypokinesis with LV, severely impaired LV function with EF between 20 and 25%, mild to moderate aortic valve sclerosis, mild to moderate mitral regurgitation. Telemetry sinus rhythm. Total PSA elevated at 14.8. Garrison placed for urinary retention. Afebrile. Past medical history reviewed. Review of systems: HEENT: Diminished hearing, diminished vision . Respiratory: Denies any increased shortness of breath. Cardiac: Denies any chest pain, palpitations. GI: Denies any nausea, vomiting, or diarrhea. Denies any abdominal tenderness. : Complains of urinary retention, history of BPH. Psychiatry: Denies any anxiety or depression. Active Medications Hydrocodone Bitart/Acetaminophen ([place] 5-325) 1 each PO Q6HR PRN PRN Reason: Pain Last Admin: 01/04/17 21:04 Dose: 1 each Furosemide (Lasix) 40 mg IV Q12HR JACK Heparin Sodium (Porcine) (Heparin) 0 unit IV PER PROTOCOL PRN; Protocol PRN Reason: Low PTT Last Admin: 01/05/17 09:23 Dose: 2,750 unit Hydralazine HCl (Apresoline) 25 mg PO TID JACK Heparin Sodium/Dextrose 25,000 (unit/ IV Solution) 500 mls @ 24.55 mls/hr IV .[id number] JACK; 18 UNITS/KG/HR PRN Reason: Protocol Last Titration: 01/05/17 09:17 Dose: 22 units/kg/hr, 30 mls/hr Metoprolol Tartrate (Lopressor) 12.5 mg PO DAILY [facility] Last Admin: 01/05/17 09:09 Dose: 12.5 mg Naloxone HCl (Narcan) 0.2 mg IV Q2M PRN PRN Reason: Opioid Reversal Pantoprazole Sodium (Protonix) 40 mg PO AC-BID [facility] Sodium Bicarbonate (Sodium Bicarbonate Tab) 650 mg PO QID [facility] Last Admin: 01/05/17 09:09 Dose: 650 mg Objective - Vital Signs Vital signs: Vital Signs Temp 95.9 F L 01/05/17 12:00 Pulse 79 01/05/17 12:00 Resp 18 01/05/17 12:00 BP 149/85 01/05/17 12:00 Pulse Ox 99 01/05/17 12:00 Intake & Output 01/04/17 01/05/17 01/05/17 18:59 06:59 18:59 Intake Total 120 44 535.377 Output Total 882 2568 Balance -762 -2524 535.377 Weight 68.2 kg 67.4 kg 67.4 kg Intake: IV 20 NS 20 Intake, IV Titration 24 535.377 Amount Heparin Sodium,Porcine/ 24 535.377 D5w Pmx 25,000 unit In Dextrose/Water 1 500ml. bag @ 18 UNITS/KG/HR 24. 55 mls/hr IV .[id number] [facility] Rx#:[id number] Oral 120 0 Output: Urine 650 1225 Coude 700 Post Void Residual 232 1343 Other: Voiding Method Urinal Urinal Indwelling Catheter # Voids 1 # Bowel Movements 1 - Exam PHYSICAL EXAM: VITAL SIGNS: As above GENERAL: Sitting up in bed, no acute distress] HEENT: [conjunctiva normal, mucosa moist.] NECK: [Supple, no JVD] RESPIRATORY EFFORT:[Normal] LUNGS: Bilateral bases diminished, occasional scattered rhonchi throughout, occasional fine bibasilar crackles CARDIOVASCULAR[regular S1 and S2, positive systolic murmur, improving edema] GI: [Abdomen soft, nondistended, nontender, positive bowel sounds. No guarding or rigidity] PSYCH: [Alert and oriented -3, mood and affect normal.] NEURO: [Gross neurological examination did not reveal any focal deficits, wasting present with generalized mild diffuse weakness, moves all 4 extremities ] - Labs CBC & Chem 7: 01/05/17 06:33 01/05/17 06:33 Labs: Abnormal Lab Results - Last 24 Hours (Table) 01/04/17 01/04/17 01/05/17 Range/Units 06:20 17:22 06:33 RBC 4.07 L (4.30-5.90) m/uL Hgb 12.1 L (13.0-17.5) gm/dL Hct 38.5 L (39.0-53.0) % Lymphocytes # 0.4 L (1.0-4.8) k/uL APTT 58.4 H (22.0-30.0) sec Carbon Dioxide (22-30) mmol/L BUN (9-20) mg/dL Creatinine (0.66-1.25) mg/dL Glucose (74-99) mg/dL Total PSA 14.8 H (0.1 - 4.0) ng/mL 01/05/17 01/05/17 Range/Units 06:33 06:33 RBC (4.30-5.90) m/uL Hgb (13.0-17.5) gm/dL Hct (39.0-53.0) % Lymphocytes # (1.0-4.8) k/uL APTT 41.7 H (22.0-30.0) sec Carbon Dioxide 21 L (22-30) mmol/L BUN 85 H* (9-20) mg/dL Creatinine 2.97 H (0.66-1.25) mg/dL Glucose 111 H (74-99) mg/dL Total PSA (0.1 - 4.0) ng/mL Assessment and Plan Plan: 1. Acute exacerbation of CHF, systolic dysfunction, EF 20-25%, severe global hypokinesis. 2. [Acute on chronic renal failure, stage IV]. 3. [Hypertension]. 4. [PAD with history of stent]. 5. [Anxiety, depression not otherwise specified]. 6. [History of nicotine dependence]. 7. [Recent weight loss, noncompliance with medical treatment over several years ; moderate right pleural effusion, consolidations and/or masses at the bilateral lung peck, cardiomegaly per reporting of CT of chest abdomen and pelvis. 8. Hyponatremia, resolved 9. Increased bilirubin, elevated LFTs, possible chronic liver disease, hepatitis panel pending. 10. Increased CK 11. Troponin 0.06, indeterminate 12. Mild to moderate protein calorie malnutrition, BMI 21.9, mild hypoalbuminemia 13. Leukocytosis 14. Anemia, normocytic, of chronic disease 15. Mild coagulopathy 16. increased d-dimer, low end of intermediate probability of PE per VQ scan 17. Prostatomegaly, PSA 14.8 18. Mild to moderate aortic sclerosis 19. Mild to moderate mitral regurgitation 20. CAD, history of bilateral carotid endarterectomy Hospital course: Continue on current medication regime , Lasix, monitoring and symptomatic treatment. Pulmonary consulted regarding abnormal radiographic findings. Urology consulted regarding elevated PSA, prostatomegaly, urinary retention. Follow closely with multiple consults. Prognosis guarded given multiple complex medical issues. The impression and plan of care has been dictated as directed. : I performed a H&P examination of this patient and discussed the same with the dictator. I agree with the dictator's note. Any additional findings/opinions/ etc. will be noted.
[2017-01-05] MEDS: hydrALAZINE HCL 25 MG TAB PO SCH ×2 (16:24→22:32)
[2017-01-05] MEDS: PANTOPRAZOLE 40 MG TABLET PO SCH (16:24)
[2017-01-05 17:26] LABS: Hepatitis B Surface Ag Index 0.06
[2017-01-05 17:32] LABS: Hepatitis B Core IgM Index 0.03
[2017-01-05 17:43] LABS: Hepatitis C Virus IgG Index 0.04
[2017-01-05 17:49] LABS: Hepatitis C Virus IgG Ab Negative (Negative)
--- NOTE | 2017-01-05 19:16 | PN ---
This gentleman has renal failure. He appears to be malnourished. He has enlarged prostate with some obstructive uropathy. I am seeking urology input and also an echocardiogram. His troponin profile does not suggest myocardial injury. I am going to discontinue IV heparin and put him on subcutaneous heparin. Plan is to check echocardiogram, continue current medications. S1, S2 heard normally. Short systolic murmur noted. Lungs revealed diminished air entry. Abdomen and lower extremity exam is unchanged. Plan is to continue current medical regimen, obtain echocardiogram, seek urology input.
--- NOTE | 2017-01-05 22:10 | PN ---
DATE OF SERVICE: 01/05/2017 This 81-year-old gentleman who was admitted with features of congestive heart failure acute exacerbation and global hypokinesis also had renal failure stage IV. The patient is being closely monitoring at this time. Multiple consultants are following the patient. I have seen and evaluated the patient with the nurse practitioner. Please see the nurse practitioner notes and examination documented as a scribe for further information. Currently was found to be 14.8. Otherwise, troponins are noted. The serum creatinine on admission was 2.8, presently 2.87. Nephrology, Dr. Haddad, has seen the patient and recommended continuing to indwelling Garrison catheter. Guarded prognosis because of multiple complex medical issues. Discussed with the family. The patient understands and consents. ERIKA
[2017-01-05] MEDS: HEPARIN SODIUM,PORCINE 5,000 UNIT/ML 1 ML VIAL SQ SCH (22:32)
[2017-01-05] MEDS: HYDROcodone/APAP 5-325MG 1 EACH TAB PO PRN (22:32)
[2017-01-05] MEDS: FUROSEMIDE 10 MG/ML 4 ML VIAL IV SCH (22:32)
[2017-01-06 03:00] VITALS: RESP 20
[2017-01-06] MEDS: PANTOPRAZOLE 40 MG TABLET PO SCH (06:59)
[2017-01-06 07:15] LABS: Basophils % (A) 0 %; CH 28.8; Eosinophils # (A) 0.1 k/uL (0-0.7); Eosinophils % (A) 1 %; HCT 37.7 % (39.0-53.0); HDW 2.61; HGB 12.1 gm/dL (13.0-17.5); Hypochromasia Slight; Luc # (Auto) 0.13; Luc % (Auto) 2; Lymphocytes # (A) 0.3 k/uL (1.0-4.8); Lymphocytes % (A) 5 %; MCH 29.9 pg (25.0-35.0); MCV 93.2 fL (80.0-100.0); Mean Platelet Volume 7.4; Monocytes # (A) 0.4 k/uL (0-1.0); Monocytes % (A) 6 %; Neutrophils # (A) 5.6 k/uL (1.3-7.7); Neutrophils % (A) 85 %; RBC 4.05 m/uL (4.30-5.90); RDW 14.3 % (11.5-15.5); WBC 6.5 k/uL (3.8-10.6); WBC (Perox) 7.11
[2017-01-06 07:59] LABS: Calcium 8.2 mg/dL (8.4-10.2); Potassium 4.1 mmol/L (3.5-5.1)
--- NOTE | 2017-01-06 10:11 | PN ---
Patient is seen for followup for renal failure which is most likely acute on top of chronic; however, we do not have any previous labs available for comparison. Patient was admitted to the hospital with fluid overload. He has been diuresed. Lasix was decreased yesterday from 60 IV q.12 to 40 IV q.12. Creatinine has been about the same since admission, staying at about 2.8 to 2.9 mg/dL with an estimated GFR at 21 mL/min. Patient had urinary retention and currently has an indwelling Garrison catheter. Daughter is present at bedside and states that patient is asking to go home. There was initial consideration for hospice. On examination, blood pressure is 145/81, heart rate 79 per minute. He is afebrile. HEART: S1 and S2. LUNGS: Bilateral breath sounds are heard. ABDOMEN: Soft, nontender. Lower extremities show edema 1+ bilaterally. TRANSITION MGR RN shows patient is moving all 4 extremities. Labs show sodium 139, potassium 4.1, BUN 88, serum creatinine 2.89. Hemoglobin 12.1 g/dL. ASSESSMENT: 1. Renal failure, most likely chronic with an element of acute kidney injury, currently stage 4 with an estimated GFR at 21 mL/min. Patient will need followup as outpatient if there are no plans for hospice. 2. Congestive heart failure, cardiomyopathy, ejection fraction 20% to 25%, mainly systolic heart failure. 3. Mild to moderate mitral regurgitation. 4. Urine retention with indwelling Garrison catheter. 5. Non-gap metabolic acidosis, maintained on sodium bicarb. 6. Infiltrate versus masses in bilateral lung peck. PLAN: Patient can be discharged from nephrology standpoint. Will order diuretics. If there are no plans for hospice, he will need followup as outpatient for CKD management. Continue with the indwelling Garrison catheter. The patient will need to see Urology as outpatient.
[2017-01-06] MEDS: FUROSEMIDE 10 MG/ML 4 ML VIAL IV SCH (10:29)
[2017-01-06] MEDS: HEPARIN SODIUM,PORCINE 5,000 UNIT/ML 1 ML VIAL SQ SCH (10:29)
[2017-01-06] MEDS: METOPROLOL TARTRATE 12.5 MG TAB PO SCH (10:30)
[2017-01-06] MEDS: hydrALAZINE HCL 25 MG TAB PO SCH (10:30)
[2017-01-06 11:12] VITALS: BP 144/73; PULSE 83; TEMP 96.9
[2017-01-06] MEDS: SODIUM BICARBONATE TAB 650 MG TAB PO SCH (14:31)
--- NOTE | 2017-01-06 15:26 | DS ---
DATE OF ADMISSION: 01/03/2017 DATE OF DISCHARGE: FINAL DIAGNOSES: 1. Congestive heart failure acute exacerbation with acute on chronic systolic dysfunction, ejection fraction 30% to 35% with severe global hypokinesis. 2. Acute on chronic renal failure stage IV. 3. Hypertension. 4. Elevated PSA, possible prostate cancer. 5. History of with history of stents. 6. Anxiety, depression not otherwise specified. 7. History of nicotine dependence. 8. History of recent weight loss and as well as right pleural effusion and consolidation with a mass of the bilateral lung peck, rule out malignancy. 9. Hyponatremia, resolved. 10. Increased bilirubin, elevated LFTs for possible chronic liver disease, hepatitis panel pending. 11. Increased CK. Troponin 0.06, indeterminate. 12. Mild to moderate protein calorie malnutrition, body mass index of 21.9 with mild hypoalbuminemia. 13. Leukocytosis, normocytic anemia of chronic disease. 14. Mild coagulopathy. 15. Increased d-dimer. 16. Prostatomegaly. 17. PSA of 14.8 with mild to moderate aortic sclerosis, mild to moderate mitral regurgitation and some coronary artery disease, history of coronary artery disease. 18. History of bilateral carotid endarterectomy. 19. NO CODE, NO CARDIOPULMONARY RESUSCITATION, NO VENTILATOR. 20. Comfort measures. DISCHARGE DISPOSITION: The patient will be discharged in a stable condition with guarded prognosis. Total time taken 35 minutes. HISTORY OF PRESENT ILLNESS: This is an 81-year-old gentleman with a past medical history of multiple medical problems, not being followed by any primary physician in the outpatient setting, recently was admitted with multiple symptomatology, CHF acute exacerbation, renal failure and as well as multiple lesions on the CAT scan and prostatomegaly. The patient was being conservatively treated but; however, the patient expressed wishes to be comfort measures and hospice no other invasive management. Discussed the case at length with the patient and the family and at this time the hospice was suggested at this time. On exam, vitals are stable. CARDIOVASCULAR SYSTEM: S1, S2, muffled. ABDOMEN: Soft. NERVOUS SYSTEM: No focal deficits. Discharge advice: 1. Diet is cardiac. 2. Activity limited until followup. 3. Follow up with Dr. Mcqueen p.r.n. 4. Follow up with [facility]. Medications are as follows: 1. Ativan 0.5 mg sublingual t.i.d. p.r.n. 2. Roxanol 10 mg subQ q.4 p.r.n. 3. Scopolamine 1.5 mg patch. MTDD
--- NOTE | 2017-01-07 12:53 | P.ARTDOP ---
Arterial Doppler LOWER EXTREMITY ARTERIAL DOPPLER: DATE OF SERVICE: 01/06/2016 Reason for study: Leg pain. Doppler waveforms: Multiphasic at the femoral levels and atypical below. Pulse volume recording: Progressive blunting below the knees. Digits are monophasic on the right and flat line on the left.. Pressure gradients: Mainly below the knee.. Ankle-brachial indices: 0.66 on the right and 0.63 on the left.. Toe pressures: [] on the right, [] on the left Impression: Suspect at least moderate infrapopliteal disease.
== END 2017-01-06 15:19 | disposition hospice, home (50) | DRG 291 ==
LOC: EC 13:09 → 6SEL 18:20
PROVIDERS: ADMIT Internal Medicine; ATTEND Internal Medicine
PROC: B44HZZZ Ultrasonography of Bilateral Lower Extremity Arteries (ICD-10-PCS; principal; 2017-01-05)
DX: I13.0 Hypertensive heart and chronic kidney disease with heart failure and stage 1 through stage 4 chronic kidney disease, or unspecified chronic kidney disease (principal); I50.23 Acute on chronic systolic (congestive) heart failure; E44.0 Moderate protein-calorie malnutrition; E87.2 Acidosis; N18.4 Chronic kidney disease, stage 4 (severe); D68.9 Coagulation defect, unspecified; N17.9 Acute kidney failure, unspecified; E87.1 Hypo-osmolality and hyponatremia; N13.8 Other obstructive and reflux uropathy; I42.9 Cardiomyopathy, unspecified; D63.8 Anemia in other chronic diseases classified elsewhere; I65.23 Occlusion and stenosis of bilateral carotid arteries; I73.9 Peripheral vascular disease, unspecified; Z66 Do not resuscitate; Z51.5 Encounter for palliative care; F41.9 Anxiety disorder, unspecified; F32.9 Major depressive disorder, single episode, unspecified; I25.10 Atherosclerotic heart disease of native coronary artery without angina pectoris; E78.5 Hyperlipidemia, unspecified; R33.9 Retention of urine, unspecified; I08.0 Rheumatic disorders of both mitral and aortic valves; N40.1 Benign prostatic hyperplasia with lower urinary tract symptoms; R62.7 Adult failure to thrive; Z87.891 Personal history of nicotine dependence; Z91.19 Patient's noncompliance with other medical treatment and regimen; Z86.73 Personal history of transient ischemic attack (TIA), and cerebral infarction without residual deficits
CPT/HCPCS: 36415; 70450; 71010; 71020; 71250; 74176; 76770; 78582; 80048; 80053; 80074; 81001; 82550; 82553; 83735; 83880; 84100; 84153; 84439; 84443; 84481; 84484; 85025; 85379; 85610; 85730; 93005; 93306; 93880; 93923; 93970; 96374; 99285